=== PATIENT | female | born 1985 | race Caucasian/White ===

== ENCOUNTER 2017-02-08 01:20 | Emergency (ER) | payer OTHER ==
--- NOTE | ~2017-02-08 | CR195 ---
[facility]. [facility] A Service of [facility] RADIOLOGY TEXT RESULTS PATIENT: KAEL COHEN LOCATION: SED : 83 UNIT #: [id number] AGE: [address]: Tatiana Garcia MD SEX: F ORDER DR: [id number] [place] [id number] E MR#: [id number] Acc #: [id number] NAME: KAEL COHEN : 1985 SEX: F STUDY DATE/TIME: 02/08/2017 1:51 UNIT: SED ROOM: STUDY DESCRIPTION: CR Neck Soft Tissue Attending Physician: Tatiana Garcia M.D. Ordering Physician: Physician Non-Staff Primary Care Physician: Hank Matta M.D. MEDICAL IMAGING REPORT This report is preliminary unless electronic signature is present. EXAM Soft tissue neck, 02/08/2017. HISTORY 31-year-old female in the ED with a persistent foreign body sensation in her throat after eating a steak. Symptoms for about 2 days. TECHNIQUE AP and lateral soft tissue radiographs of the neck. FINDINGS No definite radiopaque soft tissue foreign body is seen within the neck. There is no epiglottis enlargement, airway narrowing or prevertebral soft tissue swelling. IMPRESSION Negative soft tissue neck series. Dictated by... Gene Kamara M.D. THIS IS AN ELECTRONICALLY VERIFIED REPORT Gene Kamara M.D. at 02/08/2017 10:06 PM CHRIST/obi TD: 02/08/2017 13:17 JOB #: [id number] MEDICAL IMAGING REPORT Page 1 of 1
[~2017-02-08 01:20] MED LIST: ATIVAN0.5 MG PO; BENADRYL25 MG PO; FLEXERIL10 M1 PO; KETOPROFEN PO; MULTIVITAMIN1 UDCAP; NO MEDICATIONS; TRAVEL MOTION S25 MG PO; VIBRAMYCIN100 M1 PO; VICODIN 5/500 T1 TAB PO; VOLTAREN50 MG PO; VOLTAREN75 MG PO
== END 2017-02-08 03:22 | disposition home or self-care (01) ==
LOC: SED 01:20
DX: R13.10 Dysphagia, unspecified (principal); Z88.5 Allergy status to narcotic agent
CPT/HCPCS: 70360; 96372; 99283; J1610

== ENCOUNTER 2017-04-11 01:03 | Emergency (ER) | payer OTHER | END 2017-04-11 01:47 | disposition home or self-care (01) | LOC: SED 01:03 | DX: K08.89 Other specified disorders of teeth and supporting structures (principal); F17.210 Nicotine dependence, cigarettes, uncomplicated; Z88.5 Allergy status to narcotic agent | CPT/HCPCS: 99282; 99283 ==

== ENCOUNTER 2017-07-09 09:45 | Emergency (ER) | payer OTHER ==
[~2017-07-09] VITALS: Ht 170.2 cm; Wt 52.2 kg
--- NOTE | ~2017-07-09 | CT2 ---
[facility] A Service of [facility] [place] RADIOLOGY TEXT RESULTS PATIENT: KAEL COHEN LOCATION: SED : 83 UNIT #: [id number] AGE: [address]: Delon Yates MD SEX: F ORDER DR: [id number] [address] [address] [id number] E MR#: [id number] Acc #: [id number] NAME: KAEL COHEN : 1985 SEX: F STUDY DATE/TIME: 07/09/2017 10:58 UNIT: SED ROOM: STUDY DESCRIPTION: CT Abd and Pelv W Cont Attending Physician: Delon Yates M.D. Ordering Physician: Delon Yates M.D. Primary Care Physician: Hank Matta M.D. MEDICAL IMAGING REPORT This report is preliminary unless electronic signature is present. EXAM CT of the abdomen and pelvis with contrast HISTORY Fever of 102 with left-sided pain starting this morning. COMPARISON 10/19/2006 TECHNIQUE The patient was given 100 mL of Isovue 370 and axial 5.0 mm images were obtained through the abdomen and pelvis without IV or oral contrast. This CT exam was performed with one or more of the following radiation dose reduction techniques: automatic exposure control, adjustment of mA and/or kV according to patient size, and iterative reconstruction. FINDINGS The lung bases are clear. The liver is normal. The gallbladder has been removed. The spleen, pancreas, adrenal glands and right kidney are normal. The left kidney has an area of decreased perfusion in the lower pole. It is about 18.0 mm in diameter. There is a smaller area slightly higher in the kidney. There are 2 to 3 other small 5.0-6.0 mm areas of decreased perfusion in the cortex. I think this is likely due to pyelonephritis given the patient's symptoms. The aorta is normal in size and there is no adenopathy. The bowel is normal. The uterus is normal. The left ovary seems to have a cyst within it measuring 2.2 cm in diameter. The bladder is normal. The bones are unremarkable. IMPRESSION [facility] A Service of [facility] & [facility] RADIOLOGY TEXT RESULTS PATIENT: KAEL COHEN LOCATION: SED : [birth year] UNIT #: [id number] AGE: [address]: Delon Yates MD SEX: F ORDER DR: 1. The left kidney has 3 or 4 small subcentimeter areas of decreased perfusion in the cortex and there is one larger area measuring about 18.0 mm in diameter in the lower pole cortex. I suspect the patient probably has left-side pyelonephritis and clinical correlation with urinalysis is recommended. The larger lesion was not visible on the unenhanced CT scan from 2005. Based on today's study alone, I cannot exclude a complex cyst or mass in the lower pole of the left kidney. If clinically the patient has pyelonephritis, then I would recommend appropriate treatment and a follow-up left renal us could be done in 3-4 weeks to confirm that there is no mass in the lower pole of the left kidney. 2. 2.2 cm left ovarian cyst. 3. Otherwise the study is normal. Dictated by... Anthony Banda M.D. THIS IS AN ELECTRONICALLY VERIFIED REPORT Anthony Banda M.D. at 07/09/2017 1:43 PM Ruben TD: 07/09/2017 13:32 JOB #: [id number] MEDICAL IMAGING REPORT Page 1 of 1
[2017-07-09 10:24] LABS: BASOPHIL% 0.3 % (0-2.5); EOSINOPHIL% 0.1 % (0.0-7.0); HEMATOCRIT 38.2 % (35.0-45.0); HEMOGLOBIN 13.2 gm/dL (12.0-16.0); LYMPHOCYTE# 0.4 X10e3 (1.0-3.5); MEAN CELL VOLUME 92.3 FL (83-96); MEAN CORPUSCULAR HEMOGLOBIN 31.8 PG (28-34); MEAN CORPUSCULAR HGB CONC 34.5 g/dL (30-36); MEAN PLATELET VOLUME 8.2 FL (6.5-11.5); MONOCYTE% 10.4 % (3.0-12.0); NEUTROPHIL# 8.2 X10e3 (1.5-7.1); NEUTROPHIL% 85.2 % (40-75); PLATELET COUNT 159 X10e3 (140-420); RED BLOOD COUNT 4.14 X10e (3.90-5.30); RED CELL DISTRIBUTION WIDTH 12.8 % (11.0-15.5); WHITE BLOOD COUNT 9.7 X10e3 (4.0-10.5)
[2017-07-09 10:26] LABS: DIFF IND NO
[2017-07-09 10:40] LABS: ALBUMIN SERUM 4.5 g/dL (3.5-5.0); BILIRUBIN, DIRECT 0.2 mg/dL (0.0-0.2); BILIRUBIN,INDIRECT 0.8 mg/dL (0.0-0.9); BUN/CREATININE RATIO 15.55; CREATININE SERUM 0.9 mg/dL (0.6-1.4); GLOM FILT RATE Estimated 84.7 mL/min (>60); POTASSIUM 4.1 mmol/L (3.5-5.1)
[2017-07-09 12:21] LABS: URINE SOURCE CLEAN CATCH
[2017-07-09 12:23] LABS: URINE APPEARANCE CLEAR; URINE BILIRUBIN NEG (NEG); URINE BLOOD 3+ (NEG); URINE COLOR YELLOW; URINE GLUCOSE NEG (NORM); URINE KETONE 1+ (NEG); URINE LEUKOCYTE ESTERASE NEG (NEG); URINE NITRATE NEG (NEG); URINE PH 6.5 (5-8); URINE PROTEIN 1+ (NEG); URINE SPECIFIC GRAVITY <=1.005 (1.003-1.035); URINE UROBILINOGEN 0.2 MG/DL (NORM)
[2017-07-09 12:26] LABS: MICRO INDICATED? YES
[2017-07-09 12:34] LABS: AMPHETAMINE NEG (NEG); BARBITURATES NEG (NEG); BENZODIAZEPINES NEG (NEG); COCAINE NEG (NEG); MARIJUANA POS (NEG); OPIATES NEG (NEG); TRICYCLIC ANTIDEPRESSANTS NEG (NEG); U METHADONE NEG (NEG)
[2017-07-09 12:48] LABS: CULTURE INDICATED? NO; URINE BACTERIA NEG (NEG)
[2017-07-12 11:50] LABS: CHLAMYDIA TRACH Not Detected (Not Detected); N GONOR Not Detected (Not Detected)
== END 2017-07-09 12:51 | disposition home or self-care (01) ==
LOC: SED 09:45
PROVIDERS: Emergency Medicine
DX: N83.202 Unspecified ovarian cyst, left side (principal); K21.9 Gastro-esophageal reflux disease without esophagitis; F17.200 Nicotine dependence, unspecified, uncomplicated; Z88.5 Allergy status to narcotic agent
CPT/HCPCS: 36415; 74177; 80048; 80076; 80307; 81003; 82150; 84703; 85025; 87491; 87591; 87808; 87905; 96361; 96374; 96375; 99284; J1885; J2270; J2405; Q9967

== ENCOUNTER 2017-07-09 21:40 | Emergency (ER) | payer OTHER ==
[~2017-07-09] VITALS: Ht 170.2 cm; Wt 52.2 kg
[2017-07-09 22:49] LABS: URINE SOURCE CLEAN CATCH
[2017-07-09 22:54] LABS: BASOPHIL% 0.3 % (0-2.5); HEMATOCRIT 32.5 % (35.0-45.0); HEMOGLOBIN 11.4 gm/dL (12.0-16.0); LYMPHOCYTE# 0.5 X10e3 (1.0-3.5); LYMPHOCYTE% 4.8 % (17.0-45.0); MEAN CELL VOLUME 92.2 FL (83-96); MEAN CORPUSCULAR HEMOGLOBIN 32.3 PG (28-34); MEAN PLATELET VOLUME 8.4 FL (6.5-11.5); MONOCYTE# 1.4 X10e3 (0-1.0); MONOCYTE% 13.5 % (3.0-12.0); NEUTROPHIL# 8.4 X10e3 (1.5-7.1); NEUTROPHIL% 81.4 % (40-75); PLATELET COUNT 138 X10e3 (140-420); RED BLOOD COUNT 3.52 X10e (3.90-5.30); RED CELL DISTRIBUTION WIDTH 12.7 % (11.0-15.5); URINE APPEARANCE CLEAR; URINE BILIRUBIN NEG (NEG); URINE BLOOD 2+ (NEG); URINE COLOR YELLOW; URINE GLUCOSE NEG (NORM); URINE KETONE 1+ (NEG); URINE NITRATE NEG (NEG); URINE PROTEIN TRACE (NEG); URINE SPECIFIC GRAVITY <=1.005 (1.003-1.035); URINE UROBILINOGEN 0.2 MG/DL (NORM); WHITE BLOOD COUNT 10.3 X10e3 (4.0-10.5)
[2017-07-09 22:55] LABS: DIFF IND NO
[2017-07-09 23:00] LABS: MICRO INDICATED? YES; URINE LEUKOCYTE ESTERASE 1+ (NEG)
[2017-07-09 23:01] LABS: URINE BACTERIA NEG (NEG); URINE SQUAMOUS EPITHELIAL CELL OCCAS /[HPF]; URINE WBC 25-50 /[HPF] (0-5)
[2017-07-09 23:02] LABS: URINE MUCUS PRESENT
[2017-07-09 23:12] LABS: ALBUMIN SERUM 3.8 g/dL (3.5-5.0); BILIRUBIN, DIRECT 0.2 mg/dL (0.0-0.2); BILIRUBIN,INDIRECT 0.6 mg/dL (0.0-0.9); BILIRUBIN,TOTAL 0.8 mg/dL (0.2-2.0); BUN/CREATININE RATIO 16.25; CALCIUM SERUM 8.3 mg/dL (8.4-10.2); CREATININE SERUM 0.8 mg/dL (0.6-1.4); GLOM FILT RATE Estimated 97.6 mL/min (>60); POTASSIUM 3.4 mmol/L (3.5-5.1); PROTEIN TOTAL SERUM 6.7 g/dL (6.0-8.3)
== END 2017-07-09 23:56 | disposition home or self-care (01) ==
LOC: SED 21:40
PROVIDERS: Student in an Organized Health Care Education/Training Program
DX: N39.0 Urinary tract infection, site not specified (principal); K21.9 Gastro-esophageal reflux disease without esophagitis; F17.200 Nicotine dependence, unspecified, uncomplicated; Z90.49 Acquired absence of other specified parts of digestive tract; Z88.5 Allergy status to narcotic agent
CPT/HCPCS: 36415; 80048; 80076; 81003; 82150; 83690; 84703; 85025; 87086; 96361; 96374; 96375; 99284; J0696; J1885; J2405